=== PATIENT | female | born 1945 | race Two or more races ===

== ENCOUNTER → 2019-10-19 | Outpatient (CLI) | payer MEDICARE, BC ==
[2019-10-19 09:43] LABS: HCT 45.3 % (34.0-46.0); MCH 28.8 pg (25.0-35.0); MCV 93.1 fL (80.0-100.0); Mean Platelet Volume 8.8; Platelet Count 116 k/uL (150-450); RBC 4.86 m/uL (3.80-5.40); RDW 15.6 % (11.5-15.5); WBC 4.5 k/uL (3.8-10.6)
[2019-10-19 10:01] LABS: INR 0.9 (<1.2); Partial Thromboplastin Time 23.5 sec (22.0-30.0); Prothrombin Time 9.7 sec (9.0-12.0)
[2019-10-19 10:15] LABS: Appearance,Urine Cloudy (Clear); Bacteria,Urine Rare /hpf; Bilirubin,Urine Negative (Negative); Blood,Urine Negative (Negative); Color,Urine Yellow; Glucose,Urine (UA) Negative (Negative); Hyaline Casts,Urine 7 /lpf (0-2); Ketones,Urine Negative (Negative); Leukocyte Esterase,Urine Large (Negative); Mucus,Urine Few /hpf; Nitrite,Urine Negative (Negative); PH, Urine 5.5 (5.0-8.0); Protein,Urine Trace (Negative); RBC,Urine 5 /hpf (0-5); Specific Gravity,Urine 1.042 (1.001-1.035); Squamous Epithelial Cell,Urine 8 /hpf (0-4); WBC,Urine 21 /hpf (0-5)
[2019-10-19 10:23] LABS: Albumin 3.9 g/dL (3.5-5.0); Calcium 9.7 mg/dL (8.4-10.2); Potassium 4.6 mmol/L (3.5-5.1); Total Bilirubin 0.5 mg/dL (0.2-1.3); Total Protein 6.4 g/dL (6.3-8.2)
== END | disposition home or self-care (01) ==
LOC: LABPAT 08:22
PROVIDERS: ATTEND Orthopaedic Surgery
DX: Z01.818 Encounter for other preprocedural examination (principal); Z01.812 Encounter for preprocedural laboratory examination; Z79.01 Long term (current) use of anticoagulants
CPT/HCPCS: 36415; 80053; 81001; 85027; 85610; 85730; 87070; 93005

== ENCOUNTER 2019-11-08 05:33 | Day surgery (SDC) | payer MEDICARE, BC ==
[2019-11-03 15:03] VITALS: BMI 44.6
[~2019-11-08 05:33] MED LIST: ACETAMINOPHEN TAB 500 MG TAB PO ONE; GABAPENTIN 300 MG CAP PO ONE; MELOXICAM 7.5 MG TAB PO ONE; TRANEXAMIC ACID 1,000 MG in SODIUM CHLORIDE 0.9% 100 ML IVPB ONE
[2019-11-08] MEDS ORDERED: DEXAMETHASONE SOD PHOSPHATE 10 MG/ML 1 ML VIAL IV ONE (05:41)
[2019-11-08] MEDS ORDERED: ONDANSETRON 4 MG/2 ML VIAL IVP ONE (05:41)
[2019-11-08] MEDS ORDERED: fentaNYL (PF) 50 MCG/ML 2 ML AMP IV PRN (05:41)
[2019-11-08] MEDS ORDERED: SCOPOLAMINE 1.5MG/72HR PATCH TRANSDERM ONE (05:41)
[2019-11-08] MEDS ORDERED: MORPHINE SULFATE 2 MG/ML SYRINGE IV PRN (05:41)
[2019-11-08] MEDS: LACTATED RINGERS 1,000 ML IV SCH (06:30)
[2019-11-08] MEDS ORDERED: MIDAZOLAM 2 MG/2 ML VIAL IV ONE (06:43)
[2019-11-08] MEDS ORDERED: fentaNYL (PF) 50 MCG/ML 2 ML AMP IV ONE (06:43)
[2019-11-08] MEDS ORDERED: TRANEXAMIC ACID 1,000 MG/10 ML VIAL ONE (06:55)
[2019-11-08] MEDS ORDERED: PROPOFOL 10 MG/ML 20 ML VIAL IV ONE (06:55)
[2019-11-08] MEDS ORDERED: fentaNYL (PF) 50 MCG/ML 2 ML AMP ONE (06:55)
[2019-11-08] MEDS ORDERED: MIDAZOLAM 2 MG/2 ML VIAL ONE (06:55)
[2019-11-08] MEDS ORDERED: SODIUM CHLORIDE 0.9% 100 ML BAG ONE (06:55)
[2019-11-08] MEDS ORDERED: HYDROcodone/APAP 5-325MG 1 EACH TAB PO PRN (07:03)
[2019-11-08] MEDS ORDERED: NALOXONE 0.4 MG/ML 1 ML VIAL IV PRN (07:03)
[2019-11-08] MEDS ORDERED: ONDANSETRON 4 MG/2 ML VIAL IVP PRN (07:03)
[2019-11-08] MEDS ORDERED: HYDROmorphone 0.5 MG/0.5 ML SYRINGE IVP PRN ×3 (07:03)
[2019-11-08] MEDS ORDERED: bisacodyL 10 MG SUPP RECTAL PRN (07:03)
[2019-11-08] MEDS ORDERED: MAGNESIUM HYDROXIDE 2,400 MG/10 ML CUP PO PRN (07:03)
[2019-11-08] MEDS ORDERED: NA PHOS,M-B/NA PHOS,DI-BA 133 ML ENEMA RECTAL PRN (07:03)
[2019-11-08] MEDS: ROPIVACAINE 246.25 MG, EPINEPHrine 0.5 MG, KETOROLAC 30 MG, cloNIDine HCL/PF 80 MCG, WA... MISCELLANE ONE ×10 (07:49→08:03)
[2019-11-08] MEDS ORDERED: ceFAZolin 3,000 MG in SODIUM CHLORIDE 0.9% IRRIGATIO 3,000 ML IRRIGATION ONE (07:50)
[2019-11-08] MEDS ORDERED: ROPIVACAINE 0.2%-NS ON-Q PUMP 1,090 MG, EMPTY PAIN BALL 1 EACH MISCELLANE PRN (08:20)
--- NOTE | 2019-11-08 08:22 | P.ANPRN ---
Procedure Note - Anesthesia - Nerve Block Performed Right Adductor Canal Infusion Time Out Performed: Yes (642) Date of Procedure: 11/08/19 Procedure Start Time: 06:43 Procedure Stop Time: 06:49 Location of Patient: PreOp Indication: Acute Post-Operative Pain, Requested by Surgeon Specifically requested for management of pain by DrJj: Armand Harris Sedation Type: Sedate with meaningful contact maintained Preparation: Sterile Prep Position: Supine Catheter Depth at Skin (cm): 10 Catheter: Indwelling Needle Types: Pajunk Needle Gauge: 21 Ultrasound used to visualize needle placement: Yes Ultrasound used to observe medication spread: Yes Injectate: 0.5% Ropivacaine (see comment for volume) (20cc) Blood Aspirated: No Pain Paresthesia on Injection Noted: No Resistance on Injection: Normal Image Stored and Saved: Yes Events: Uneventful and Well Tolerated
--- NOTE | 2019-11-08 08:31 | P.OP ---
Date of Procedure: 11/08/19 Preoperative Diagnosis: Severe osteoarthritis right knee Postoperative Diagnosis: Severe osteoarthritis right knee Procedure(s) Performed: Right total knee arthroplasty Implants: Joyce and Nephew Journey II CR Oxinium cruciate retaining femoral component size 5, right [employer]hew Journey right nonporous tibial baseplate size 3 Joyce [employer] Nephew Journey II, XLPE Deep Dished articular insert, size 13 mm, Size 3-4 right [employer] Journey BCS resurfacing oval patellar component, 32 mm All components were cemented using Palacos R bone cement.. The articulation is Oxinium on polyethylene. Anesthesia: spinal Surgeon: Guillermo Yuen Deposition Operator #1: Mary Ann Valdez Estimated Blood Loss (ml): 30 Pathology: other (Bone and cartilage) Condition: stable Disposition: PACU Indications for Procedure: After failure of conservative treatment we discussed the surgical and nonsurgical treatment options at length. Patient wishes to proceed with a total knee arthroplasty. Complications specific to this procedure were discussed at length, including but not limited to infection, bleeding, stiffness, and nerve injury. Covid-19 was also discussed at length with the patient, and they are aware of the current policies and procedures. The patient was given the option of delaying surgery, but they elect to proceed knowing these risks. Patient is aware of all these complications and informed consent was obtained Operative Findings: The operative findings are consistent with severe osteoarthritis of the right knee Description of Procedure: Patient was seen in the preoperative area consent was reviewed and operative site was marked with a skin marker. An adductor canal pain catheter was placed by anesthesia in the preoperative area. Patient was then brought to the operating room and given preoperative antibiotics intravenously. A spinal anesthetic was administered by the anesthesia department. A tourniquet was placed on the upper thigh and the lower extremity was prepped and draped in usual sterile fashion. A gram of transexamic acid was given. A universal timeout was then performed which confirmed the patient's name, surgical site, ALLERGIES, and consent. The lower extremity was then exsanguinated and tourniquet was inflated to 250 mmHg. A standard and anterior midline approach to the knee was performed. The skin and subcutaneous tissue was dissected down to the patellar tendon. A medial parapatellar arthrotomy was then performed. The knee was then extended, the patellar was everted, and the knee was again flexed. The patellar fat pad was removed in order to enhance exposure. Anterior horns of both menisci were excised, and a release was performed to the posterior medial aspect of the knee. On gross visual inspection, there was complete loss of articular cartilage in the medial and patellofemoral joint spaces. There was also significant cartilage damage in the lateral compartment. There were multiple periarticular osteophytes which were then removed with a Ronguer. The femoral canal was then opened with the 9.5 mm intramedullary drill. The 8 mm intramedullary samantha was then inserted into the femoral canal. The distal femoral cutting guide was then placed and set for 5 of valgus. The distal femoral cutting block was then pinned in place. The intramedullary samantha was then removed, and the distal femur was then cut. The cutting block was then removed and the cut was checked for symmetry. Next, the sizing guide was then placed and set for 3 external rotation based off of the epicondylar axis and Whitesides line. Pins were then placed and the drill holes, and the femur was sized with the sizing stylus. The pins were then removed, and the sizing guide was then removed. The spikes of the femoral block was then placed into the predrilled holes, and malleted into place. Two 45 mm pins were then placed into the fixation holes on the cutting block. An courtney wing was then used to ensure there would be no notching with the anterior cut. The anterior condyles were cut without notching. The anterior cord cut was then performed, followed by the posterior cut, posterior chamfer cut, and the anterior chamfer cut. The collateral ligaments were protected during the entire process. The cutting block was then removed, and the femoral canal was plugged with autologous bone. Attention was then directed to the tibia. The remaining ACL was removed with a Ronguer, and the tibia was then gently subluxed forward with a large bent knee retractor. Any remaining menisci was excised. The posterior lateral corner was cauterized in order to cauterize the lateral geniculate artery. The extra medullary tibial cutting guide was then placed, set for the appropriate rotation, slope, and depth of resection. The proximal tibia cutting guide was then pinned in place. Proximal tibia was then cut and sized. Next trials were then placed with the appropriate-sized insert. The knee was able to fully extend and flex to 130 and was stable throughout all range of motion. The knee was then extended, patella everted. Patella was then measured, and then using an osteotomy guide, the patella was cut at the appropriate level. The patella was then measured and drilled and the patella trial was then placed. The knee was then taken through range of motion with the patella trial and the patella tracked normally. The knee was then extended patella trial was then removed and the patella was everted. Knee was then flexed and lug holes were drilled through the femoral trial and the femoral trial was then removed. The tibial was then exposed, and the tibial broach guide was then pinned in place after it was set for the appropriate rotation to allow for the most coverage without overhang. The tibia was then reamed and broached. The cut surfaces of bone were then irrigated with pulsatile lavage. The posterior structures were injected with the ropivacaine solution. The knee was also irrigated with Irrisept solution. The components were then opened, the cement was mixed, and the components were then cemented in place. The cement was allowed to harden with the knee in full extension. While the cement was hardening, the remaining soft tissues were then injected with a ropivacaine solution, which consisted of 246.25 mg of ropivacaine, 0.5 mg of epinephrine, 30 mg of Toradol, 80 g of clonidine, and 48.45 mL of sterile water, for a total of 100 mL of fluid injected. After the cemented hardened. The tourniquet was released, and hemostasis was obtained. A second gram of transexamic acid was given. The knee was again irrigated. The knee was again taken through range of motion and found to be stable throughout all range of motion of 0-130, and the patella tracked normally. The fascia was then closed with #2 strata fix suture. The subcutaneous tissue was closed with 3-0 Vicryl and 3-0 strata fix. Dermabond glue was used for the skin and placed with the knee in flexion. The patient was placed in a sterile silver dressing. Patient was then transferred to recovery room in stable condition. The physician assistant certified SHAYAN Rojo was required due the complexity surgery and the need for a skilled surgical garment fitter. She assisted in positioning, draping, retraction, and closure of the wound.
[2019-11-08 08:51] VITALS: RESP 16
--- NOTE | 2019-11-08 09:13 | XR ---
EXAMINATION TYPE: XR knee limited RT DATE OF EXAM: 11/08/2019 CLINICAL HISTORY: Right knee pain and arthritis status post total knee replacement. TECHNIQUE: Portable AP and crosstable lateral views of the right knee are obtained immediately posto peratively. COMPARISON: None FINDINGS: Metallic hardware from total right knee arthroplasty is seen and appears satisfactory in a lignment and position. There is evidence of recent surgery with diffuse subcutaneous gas and soft ti ssue swelling noted. IMPRESSION: METALLIC HARDWARE FROM TOTAL RIGHT KNEE ARTHROPLASTY IS SATISFACTORY IN ALIGNMENT.
[2019-11-08] MEDS: SODIUM CHLORIDE 0.9% 1,000 ML IV SCH ×2 (14:32→21:48)
[2019-11-08] MEDS: HYDROcodone/APAP 5-325MG 1 EACH TAB PO PRN ×2 (16:25→23:21)
[2019-11-08] MEDS ORDERED: SENNOSIDES-DOCUSATE SODIUM 1 EACH TAB PO SCH (21:00)
[2019-11-08] MEDS: ASPIRIN 325 MG TAB PO SCH (21:47)
--- NOTE | 2019-11-08 22:25 | P.CONS ---
History of Present Illness - Reason for Consult Consult date: 11/08/19 - History of Present Illness Patient is a 73-year-old female with a PMH of hypertension, hyperlipidemia, and right knee OA who was admitted for elective right knee total arthroplasty which she underwent earlier today. She was seen postoperatively on the surgical unit. Patient reported that her pain was a 3 out of 10 at the time of evaluation. She has been up and walking to the bathroom, and has been passing urine. She has not had flatus or bowel movement as of yet. She denied any additional complaints. She reported compliance with her home medications. She denied chest pain, shortness of fever, chills, nausea, vomiting, diarrhea, or abdominal pain. Review of Systems Pertinent positives and negatives as discussed in HPI, a complete review of systems was performed and all other systems are negative. Past Medical History Past Medical History: Asthma, GERD/Reflux, Hyperlipidemia, Hypertension Additional Past Medical History / Comment(s): leaky valve. asthma as a child History of Any Multi-Drug Resistant Organisms: None Reported Past Surgical History: Section, Cholecystectomy Additional Past Surgical History / Comment(s): C/S x2 Past Anesthesia/Blood Transfusion Reactions: Motion Sickness, Postoperative Nausea & Vomiting (PONV) Past Psychological History: No Psychological Hx Reported Smoking Status: Former smoker Past Alcohol Use History: Rare Additional Past Alcohol Use History / Comment(s): smoker for 3 years quit 1967 Past Drug Use History: None Reported - Past Family History Mother Family Medical History: No Reported History Medications and Allergies Home Medications Medication Instructions Recorded Confirmed Type Aspirin EC [Ecotrin Low Dose] 81 mg PO DAILY 11/03/19 11/03/19 History Cholecalciferol [Vitamin D3 (25 4,000 unit PO DAILY 11/03/19 11/03/19 History Mcg = 1000 Iu)] Rosuvastatin [Crestor] 10 mg PO DAILY 11/03/19 11/03/19 History atenoloL [Atenolol] 25 mg PO BID 11/03/19 11/03/19 History lisinopriL [Zestril] 5 mg PO DAILY 11/03/19 11/03/19 History Allergies Allergy/AdvReac Type Severity Reaction Status Date / Time No Known Allergies Allergy Verified 11/03/19 14:50 Physical Exam Vitals: Vital Signs Temp Pulse Resp BP Pulse Ox 11/08/19 14:02 97.5 F L 61 16 129/76 95 11/08/19 13:50 69 16 124/59 98 11/08/19 13:00 68 16 122/56 98 11/08/19 12:30 64 16 126/59 98 11/08/19 11:30 63 16 125/63 97 11/08/19 11:00 69 16 127/59 97 11/08/19 10:30 63 16 126/62 98 11/08/19 10:00 61 16 125/60 98 11/08/19 09:45 68 16 123/58 97 11/08/19 09:30 69 16 126/60 96 11/08/19 09:15 65 16 128/58 94 L 11/08/19 09:00 72 16 120/57 94 L 11/08/19 08:46 97.6 F 76 16 115/56 94 L 11/08/19 06:50 64 18 134/58 96 11/08/19 05:53 97.3 F L 76 20 171/77 94 L Intake and Output 11/08/19 11/08/19 11/08/19 06:59 14:59 22:59 Intake Total 1051 560 Output Total 30 Balance 1021 560 Intake: IV 1051 Intake, IV Titration 560 Amount Sodium Chloride 0.9% 1, 560 000 ml @ 70 mls/hr IV . [id number] [facility] Rx#:[id number] Output: Estimated Blood Loss 30 Other: Voiding Method Toilet Weight 118.6 kg 118.6 kg General: non toxic, no distress, appears at stated age, morbidly obese Derm: no unusual rashes/lesions no unusual ecchymoses, warm, dry Head: atraumatic, normocephalic, symmetric Eyes: EOMI, no lid lag, anicteric sclera, pupils equal round reactive to light ENT: Nose and ears atraumatic, no thrush, no pharyngeal erythema Neck: No thyromegaly, no cervical lymphadenopathy, trachea midline, supple Mouth: no lip lesion, mucus membranes moist Cardiovascular: S1S2 reg, no murmur, positive posterior tibial pulse bilateral, no edema, capillary refill less than 2 seconds Lungs: CTA bilateral, no rhonchi, no rales , no accessory muscle use Abdominal: soft, nontender to palpation, no guarding, no appreciable organomegaly, normal bowel sounds Ext: Right knee Maciej bandage in place, no gross muscle atrophy, muscle strength 5 out of 5 in all extremities grossly except right lower extremity pain, no contractures, Neuro: CN II-XI grossly intact, light touch intact all 4 extremities, finger to nose within normal limits, Psych: Alert, oriented, appropriate affect Assessment and Plan Plan: Hypertension -Continue home lisinopril and atenolol Hyperlipidemia -Continue with home Crestor Status post right knee total arthroplasty -Management including pain control as per the surgery service We appreciate this opportunity to be involved in this patient's care. We will follow the patient with you. For any further questions, please not hesitate to contact the [facility] inpatient team.
[2019-11-09] MEDS: LACTATED RINGERS 1,000 ML IV SCH (00:41)
[2019-11-09] MEDS: HYDROcodone/APAP 5-325MG 1 EACH TAB PO PRN ×2 (05:23→11:00)
--- NOTE | 2019-11-09 06:35 | P.PN ---
Progress Note - Text Progress Note Date: 11/09/19 (549) Anesthesiology Postop day 1 status post total knee arthroplasty with adductor canal catheter. Patient doing well. VAS 1 out of 10. Gross strength intact in lower extremity. Afebrile. Denies alterations in sensorium. Catheter site intact. Heart regular rate Lungs nonlabored Abdomen nondistended Assessment: Postop day 1 status post total knee arthroplasty with adductor canal catheter Plan: All questions answered. Maintain catheter 2 more days with patient removal at home. Instructions were given at discharge.
[2019-11-09 07:41] VITALS: TEMP 97.5
[2019-11-09] MEDS: ASPIRIN 325 MG TAB PO SCH (08:08)
[2019-11-09 08:12] LABS: Basophils % (A) 0 %; Eosinophils % (A) 0 %; HCT 38.8 % (34.0-46.0); HGB 12.1 gm/dL (11.4-16.0); Lymphocytes # (A) 1.1 k/uL (1.0-4.8); Lymphocytes % (A) 11 %; MCH 29.2 pg (25.0-35.0); MCHC 31.2 g/dL (31.0-37.0); MCV 93.6 fL (80.0-100.0); Mean Platelet Volume 8.8; Monocytes # (A) 0.5 k/uL (0-1.0); Monocytes % (A) 6 %; Neutrophils # (A) 7.5 k/uL (1.3-7.7); Neutrophils % (A) 82 %; Platelet Count 113 k/uL (150-450); RBC 4.15 m/uL (3.80-5.40); RDW 15.3 % (11.5-15.5); WBC 9.2 k/uL (3.8-10.6)
--- NOTE | 2019-11-09 08:20 | P.DS ---
Providers Expected date of discharge: 11/09/19 Attending physician: Guillermo Yuen Consults: 11/08/19 07:03 Consult Physician Routine Consulting Provider: Cheryle Ventura Consult Reason/Comments: medical management Do you want consulting provider notified?: Yes Primary care physician: Jan Brooks [facility] Course: This is a 74-year-old female who was last seen with complaint of continued right knee pain. The patient has a known history of degenerative arthritis of the right knee and presents to discuss surgical options with Dr. Yuen. After discussion and consideration the patient elects to proceed with total right knee arthroplasty. The patient is seen preoperatively by Dr. Brooks and cleared for surgery. The patient is admitted to [facility] for total right knee arthroplasty. The procedures performed without complication or sequelae. Patient is doing well postoperatively. Vital signs are stable at discharge. Labs are stable at discharge. The patient is seen and examined bedside this morning. She states the pain in the right knee is well-controlled. She has been ambulating with a walker with minimal assistance. She tolerated her breakfast well. She denies chest pain, shortness breath, nausea, vomiting, fevers, chills. Overall she feels well and has no complaints. On examination, the patient is sitting up in bed in no apparent distress. She is alert and oriented 3. On inspection of the right knee, there is a clean, dry, intact dressing in place. Right lower extremity is warm and well-perfused with brisk capillary refill distally. Dorsalis pedis pulse +2. Patient has good strength and range of motion of the right ankle. Motor and sensory function are intact of the right lower extremity. Calf is soft and nontender to palpation. The patient is discharged to home on postop day #1 pending medical clearance. Please see orders and refer to the med rec for accurate list of medications. Patient Condition at Discharge: Fair Plan - Discharge Summary Discharge Rx Participant: No New Discharge Prescriptions: New Aspirin 325 mg PO BID 30 Days #60 tab Hydrocodone/Acetaminophen [[place] 5-325] 1 - 2 tab PO Q6H PRN #40 tab PRN Reason: Pain Sennosides-Docusate Sodium [Senokot-S] 2 tab PO HS PRN #30 tablet PRN Reason: Constipation No Action Cholecalciferol [Vitamin D3 (25 Mcg = 1000 Iu)] 4,000 unit PO DAILY Aspirin EC [Ecotrin Low Dose] 81 mg PO DAILY atenoloL [Atenolol] 25 mg PO BID Rosuvastatin [Crestor] 10 mg PO DAILY lisinopriL [Zestril] 5 mg PO DAILY Discharge Medication List Aspirin EC [Ecotrin Low Dose] 81 mg PO DAILY 11/03/19 [History] Cholecalciferol [Vitamin D3 (25 Mcg = 1000 Iu)] 4,000 unit PO DAILY 11/03/19 [History] Rosuvastatin [Crestor] 10 mg PO DAILY 11/03/19 [History] atenoloL [Atenolol] 25 mg PO BID 11/03/19 [History] lisinopriL [Zestril] 5 mg PO DAILY 11/03/19 [History] Aspirin 325 mg PO BID 30 Days #60 tab 11/09/19 [Rx] Hydrocodone/Acetaminophen [[place] 5-325] 1 - 2 tab PO Q6H PRN #40 tab 11/09/19 [Rx] Sennosides-Docusate Sodium [Senokot-S] 2 tab PO HS PRN #30 tablet 11/09/19 [Rx] Activity/Diet/Wound Care/Special Instructions: Weight bear as tolerated on operative leg. Use walker for ambulation. Keep Optifoam dressing in place for 7-10 days. May shower over dressing. Take pain medication as prescribed. Aspirin 325 mg for blood clot prevention. Follow-up at [facility] in 2 weeks. Call with any questions or concerns, Discharge Disposition: HOME WITH HOME HEALTH SERVICES
[2019-11-09] MEDS ORDERED: ATORVASTATIN 20 MG TAB PO SCH (09:00)
[2019-11-09] MEDS ORDERED: lisinopriL 5 MG TAB PO SCH (09:00)
[2019-11-09] MEDS ORDERED: atenoloL 25 MG TAB PO SCH (09:00)
[2019-11-09] MEDS ORDERED: MELOXICAM 7.5 MG TAB PO SCH (09:00)
[2019-11-09] MEDS: SODIUM CHLORIDE 0.9% 1,000 ML IV SCH (09:44)
[2019-11-09 10:05] VITALS: BP 122/56; PULSE 57
--- NOTE | 2019-11-09 20:12 | P.PN ---
Subjective Progress Note Date: 11/09/19 Principal diagnosis: leg pain Patient is a 18-year-old female history of hypertension, dyslipidemia, and GERD who presented for elective right total knee arthroplasty. She underwent surgical procedure without any immediate postoperative complications. Pain is well controlled. She's been up and ambulating. Patient seen and examined at bedside. She denies any chest pain, shortness breath, nausea, or vomiting. Pain is well controlled. General: non toxic, no distress, appears at stated age Cardiovascular: S1S2 reg, no murmur, positive posterior tibial pulse bilateral, Lungs: CTA bilateral, no rhonchi, no rales , no accessory muscle use Abdominal: soft, nontender to palpation, no guarding, no appreciable organomegaly Ext: no gross muscle atrophy, no edema, no contractures Neuro: CN II-XI grossly intact, no focal neuro deficits Psych: Alert, oriented, appropriate affect GERD -While is receiving twice daily aspirin she will take Pepcid every day Hypertension -Continue with lisinopril, Tylenol Dyslipidemia -Continue with Crestor Arthritis status post right total knee arthroplasty -Resume aspirin 81 mg once daily after she has completed her twice-daily regimen -Monitor for signs and symptoms of bleeding as patient has chronic thrombocytopenia. Patient is aware and will call PCP if any abnormal signs of bruising or bleeding appear Chronic thrombocytopenia, at baseline -Monitor for signs and symptoms of bleeding while on twice-daily full dose aspirin. Thank you for allowing us to participate in the care of this pleasant patient. Do not hesitate to contact us with questions. Someone can be reached from the [facility] hospitalist group all hours of the day at [phone] or via perfect serve. All instructions noted above had been added to discharge plan. Objective - Vital Signs Vital signs: Vital Signs Temp 97.5 F L 11/09/19 07:00 Pulse 57 L 11/09/19 10:05 Resp 16 11/09/19 08:20 BP 122/56 11/09/19 10:05 Pulse Ox 95 11/09/19 07:00 Intake & Output 11/08/19 11/09/19 11/09/19 18:59 06:59 18:59 Intake Total 1051 560 200 Output Total 30 Balance 1021 560 200 Weight 118.6 kg Intake: IV 1051 Intake, IV Titration 560 Amount Sodium Chloride 0.9% 1, 560 000 ml @ 70 mls/hr IV . [id number] [facility] Rx#:[id number] Oral 200 Output: Estimated Blood Loss 30 Other: Voiding Method Toilet Toilet # Voids 1 - Labs CBC & Chem 7: 11/09/19 07:45 Labs: Abnormal Lab Results - Last 24 Hours (Table) 11/09/19 Range/Units 07:45 Plt Count 113 L (150-450) k/uL
== END 2019-11-09 11:43 | disposition home health service (06) ==
LOC: OR 05:33 → 4SSUR 08:46 → OR 11-09 11:43
PROVIDERS: ATTEND Orthopaedic Surgery
DX: M17.11 Unilateral primary osteoarthritis, right knee (principal); M25.761 Osteophyte, right knee; D69.6 Thrombocytopenia, unspecified; I10 Essential (primary) hypertension; E78.5 Hyperlipidemia, unspecified; I38 Endocarditis, valve unspecified; K21.9 Gastro-esophageal reflux disease without esophagitis; Z87.891 Personal history of nicotine dependence; Z87.09 Personal history of other diseases of the respiratory system; Z90.49 Acquired absence of other specified parts of digestive tract; Z98.891 History of uterine scar from previous surgery; Z79.82 Long term (current) use of aspirin; Z79.899 Other long term (current) drug therapy
CPT/HCPCS: 97116; 97110; 97161; 64448; 76942; 85025; 88300; 73560; 27447; C1713; C1776; J2250; J0171; J1100; J0690 ×2; J2405; J3010; J1885; J2795 ×2; J0735

== ENCOUNTER → 2021-06-19 | Outpatient (CLI) | payer MEDICARE, BC ==
[2021-06-19 10:53] LABS: Basophils % (A) 0 %; Eosinophils % (A) 1 %; HCT 45.9 % (34.0-46.0); HGB 14.3 gm/dL (11.4-16.0); Lymphocytes % (A) 8 %; MCH 29.8 pg (25.0-35.0); MCHC 31.1 g/dL (31.0-37.0); MCV 95.8 fL (80.0-100.0); Mean Platelet Volume 9.4; Monocytes % (A) 5 %; Neutrophils # (A) 7.6 k/uL (1.3-7.7); Neutrophils % (A) 85 %; Platelet Count 126 k/uL (150-450); RBC 4.79 m/uL (3.80-5.40); RDW 14.3 % (11.5-15.5); WBC 8.9 k/uL (3.8-10.6)
[2021-06-19 10:54] LABS: Eosinophils # (A) 0.1 k/uL (0-0.7); Lymphocytes # (A) 0.7 k/uL (1.0-4.8); Monocytes # (A) 0.4 k/uL (0-1.0)
[2021-06-19 12:41] LABS: RBC Morphology Normal
== END | disposition home or self-care (01) ==
LOC: LABWHC1 09:29
PROVIDERS: ATTEND Internal Medicine
DX: D69.6 Thrombocytopenia, unspecified (principal)
CPT/HCPCS: 36415; 85025

== ENCOUNTER → 2021-07-04 | Outpatient (CLI) | payer MEDICARE, BC ==
[2021-07-04 15:06] LABS: Basophils % (A) 1 %; Eosinophils # (A) 0.1 k/uL (0-0.7); Eosinophils % (A) 1 %; HCT 46.2 % (34.0-46.0); HGB 14.6 gm/dL (11.4-16.0); Lymphocytes # (A) 0.7 k/uL (1.0-4.8); Lymphocytes % (A) 14 %; MCH 30.1 pg (25.0-35.0); MCHC 31.7 g/dL (31.0-37.0); Mean Platelet Volume 9.7; Monocytes # (A) 0.3 k/uL (0-1.0); Monocytes % (A) 6 %; Neutrophils # (A) 3.9 k/uL (1.3-7.7); Neutrophils % (A) 76 %; Platelet Count 128 k/uL (150-450); RBC 4.86 m/uL (3.80-5.40); RDW 14.5 % (11.5-15.5); WBC 5.1 k/uL (3.8-10.6)
== END | disposition home or self-care (01) ==
LOC: LABWHC1 13:41
PROVIDERS: ATTEND Internal Medicine
DX: D69.6 Thrombocytopenia, unspecified (principal)
CPT/HCPCS: 36415; 85025

== ENCOUNTER → 2021-08-17 | Outpatient (CLI) | payer MEDICARE, BC ==
--- NOTE | 2021-08-18 06:37 | BD ---
EXAMINATION TYPE: Axial Bone Density DATE OF EXAM: 08/17/2021 COMPARISON: NEW TO [facility].... CLINICAL HISTORY: 76 years year old Female. ICD-10 CODE: M89.9 Disorder of bone Height: 63.5 Weight: 256 FRAX RISK QUESTIONS: NOTHING TO NOTE HERE RISK FACTORS HISTORY OF: Postmenopausal woman: 53 YRS Hyperparathyroidism: NO Adrenal Insufficiency: NO MEDICATIONS: Additional Medications: BP MEDS, REFLUX MEDS, CHOLESTEROL MEDS, VIT D Additional History: TKR, RT SIDE, REFLUX, HYPERTENSION, CHOLESTEROL EXAM MEASUREMENTS: Bone mineral densitometry was performed using the [employer] System. Bone mineral density as measured about the Lumbar spine is: ----- L1-L4(G/cm2): 1.364 T Score Values are as follows: ----- L1: 2.0 ----- L2: 1.0 ----- L3: 1.5 ----- L4: 1.6 ----- L1-L4: 1.5 Bone mineral density NEW TO [facility] Bone mineral density about the R hip (g/cm2): 1.025 Bone mineral density about the L hip (g/cm2): 1.035 T Score values are as follows: -----R Neck: 0.0 -----L Neck: -0.1 -----R Total: 0.1 -----L Total: 0.2 Bone mineral density NEW TO [facility] FRAX%s: The graph provided illustrates a 6.6% chance for a major osteoporotic fx and a 0.6% chance fo r the hips probability for fx in 10 years time. IMPRESSION: Normal (Values between +1 and -1 indicate normal bone mass). Consider repeating this study in 5 year s or sooner if there is some new clinical indication. NOTE: T-SCORE=SD OF THE YOUNG ADULT MEAN.
== END | disposition home or self-care (01) ==
LOC: RADBDWWP 08:27
PROVIDERS: ATTEND Internal Medicine
DX: M89.9 Disorder of bone, unspecified (principal); Z78.0 Asymptomatic menopausal state
CPT/HCPCS: 77080

== ENCOUNTER → 2022-09-13 | Outpatient (CLI) | payer MEDICARE, BC ==
[2022-09-13 17:05] LABS: ALT 19 U/L (8-44); AST 16 U/L (13-35); Chol/HDL Ratio 4.67 Ratio; Creatine Kinase 30 U/L (26-186); LDL Cholesterol,Calculated 181.4 mg/dL (0.0-131.0)
== END | disposition home or self-care (01) ==
LOC: LABWHC1 08:33
PROVIDERS: ATTEND Internal Medicine Interventional Cardiology
DX: I10 Essential (primary) hypertension (principal); E78.5 Hyperlipidemia, unspecified
CPT/HCPCS: 36415; 80061; 82550; 84450; 84460

== ENCOUNTER → 2022-11-26 | Outpatient (CLI) | payer MEDICARE, BC ==
[2022-11-26 11:28] LABS: ALT 22 U/L (8-44); AST 14 U/L (13-35); Chol/HDL Ratio 2.44 Ratio; Creatine Kinase 30 U/L (26-186); LDL Cholesterol,Calculated 63.6 mg/dL (0.0-131.0)
== END | disposition home or self-care (01) ==
LOC: LABWHC1 07:23
PROVIDERS: ATTEND Internal Medicine Interventional Cardiology
DX: I10 Essential (primary) hypertension (principal); E78.5 Hyperlipidemia, unspecified
CPT/HCPCS: 36415; 80061; 82550; 84450; 84460

== ENCOUNTER → 2024-06-09 | Outpatient (CLI) | payer MEDICARE, BC ==
[2024-06-09 12:23] LABS: Partial Thromboplastin Time 23.3 sec (22.0-30.0); Prothrombin Time 10.7 sec (10.0-12.5)
[2024-06-09 15:40] LABS: HCT 45.6 % (37.2-46.3); HGB 14.3 g/dL (12.0-15.0); MCH 29.6 pg (27.0-32.0); MCHC 31.4 g/dL (32.0-37.0); MCV 94.4 FL (80.0-97.0); Mean Platelet Volume 11.9 FL (9.5-12.2); NRBC Per 100 WBC 0 X 10*3/uL (0.00-0.01); Platelet Count 126 X 10*3/uL (140-440); RBC 4.83 X 10*6/uL (4.10-5.20); RDW 14.3 % (11.5-14.5); WBC 7.13 X 10*3/uL (4.50-10.00)
[2024-06-09 15:47] LABS: ALT 16 U/L (8-44); AST 14 U/L (13-35); Alkaline Phosphatase 84 U/L (41-126); BUN/Creat Ratio 20.82 Ratio (12.00-20.00); Blood Urea Nitrogen 22.9 mg/dL (9.0-27.0); Calcium 9.8 mg/dL (8.7-10.3); Chloride 107 mmol/L (96-109); Globulin 2.1 g/dL (1.6-3.3); Glucose 139 mg/dL (70-110); Potassium 4.3 mmol/L (3.5-5.5); Sodium 142 mmol/L (135-145); Total Bilirubin 0.2 mg/dL (0.3-1.2); Total Protein 6.1 g/dL (6.2-8.2)
== END | disposition home or self-care (01) ==
LOC: LABPAT 11:33
PROVIDERS: ATTEND Family Medicine
DX: Z01.818 Encounter for other preprocedural examination (principal); Z22.322 Carrier or suspected carrier of Methicillin resistant Staphylococcus aureus; M17.12 Unilateral primary osteoarthritis, left knee
CPT/HCPCS: 80053; 85027; 85610; 85730; 87070; 93005

== ENCOUNTER 2024-06-28 05:34 | Day surgery (SDC) | payer MEDICARE, BC ==
[~2024-06-28 05:34] MED LIST changes: -ACETAMINOPHEN TAB 500 MG TAB PO ONE; -GABAPENTIN 300 MG CAP PO ONE; -MELOXICAM 7.5 MG TAB PO ONE; +TRANEXAMIC 1,000 MG/100ML-NACL 1,000 MG in SALINE 1 100ML.BAG IVPB PRN; -TRANEXAMIC ACID 1,000 MG in SODIUM CHLORIDE 0.9% 100 ML IVPB ONE
[2024-06-28] MEDS ORDERED: LIDOCAINE 1% (10MG/ML) FOR IV START INTRADERMA PRN (05:40)
[2024-06-28] MEDS ORDERED: HYDROmorphone 0.5 MG/0.5 ML SYRINGE IVP PRN ×4 (05:40→08:47)
[2024-06-28] MEDS: GABAPENTIN 300 MG CAP PO PRN (05:59)
[2024-06-28] MEDS: MELOXICAM 7.5 MG TAB PO PRN (05:59)
[2024-06-28] MEDS: ACETAMINOPHEN TAB 500 MG TAB PO PRN (05:59)
[2024-06-28] MEDS: ONDANSETRON 4 MG/2 ML VIAL IVP ONE (06:24)
[2024-06-28] MEDS: LACTATED RINGERS 1,000 ML IV SCH ×2 (06:24→10:24)
[2024-06-28] MEDS: DEXAMETHASONE SOD PHOSPHATE 4 MG/ML 1 ML VIAL IV ONE (06:25)
[2024-06-28] MEDS: IV FLUID CONTINUATION 1,000 ML IV ONE (06:27)
[2024-06-28] MEDS: MIDAZOLAM 2 MG/2 ML VIAL IV ONE (06:43)
[2024-06-28] MEDS ORDERED: SODIUM CHLORIDE 0.9% (PF) 10 ML VIAL ONE (06:57)
[2024-06-28] MEDS ORDERED: MIDAZOLAM 2 MG/2 ML VIAL ONE (06:57)
[2024-06-28] MEDS ORDERED: ePHEDrine 50 MG/ML 1 ML VIAL ONE (06:57)
[2024-06-28] MEDS ORDERED: fentaNYL (PF) 50 MCG/ML 2 ML AMP ONE (06:57)
[2024-06-28] MEDS ORDERED: TRANEXAMIC 1,000 MG/100ML-NACL PREMIX BAG ONE (06:57)
[2024-06-28] MEDS ORDERED: ROPIVACAINE 5 MG/ML 30 ML VIAL ONE (06:57)
[2024-06-28 07:00] LABS: Immature Platelet Fraction 4.2 % (1.1-6.1); Mean Platelet Volume 11.4 fL (9.5-12.2); Platelet Count 124 10*3/uL (140-440)
[2024-06-28] MEDS: ceFAZolin 1,000 MG in SODIUM CHLORIDE 0.9% 1,000 ML IRRIGATION ONE (07:05)
[2024-06-28] MEDS: ceFAZolin 2 GM in DEXTROSE 5% IN WATER 50 ML IVPB PRN (07:05)
--- NOTE | 2024-06-28 08:15 | P.OP ---
Date of Procedure: 06/28/24 Preoperative Diagnosis: Severe osteoarthritis left knee Postoperative Diagnosis: Severe osteoarthritis left knee Procedure(s) Performed: Left total knee arthroplasty Implants: [employer] Journey II CR Oxinium cruciate retaining femoral component size 5, left [employer] Journey nonporous tibial baseplate size 3, left [employer] Journey II, XLPE Deep Dished articular insert, size 9 mm, Size 3- 4, left [employer] Triny II resurfacing patellar component, oval, 29 mm All components were cemented using Palacos R bone cement The articulation is Oxinium on polyethylene Anesthesia: spinal Surgeon: Guillermo Yuen Mortgage Servicing Specialist #1: Mary Ann Valdez Estimated Blood Loss (ml): 30 Pathology: none sent Condition: stable Disposition: PACU Indications for Procedure: The patient's knee is end-stage, and conservative management has failed. The operation of knee replacement has been discussed at length in the office, as well as potential risks and complications. These are inclusive of, but not limited to: Infection, bleeding, scarring, discomfort, stiffness, blood vessel and nerve damage, need for further surgery, failure to relieve symptoms, persistence, recurrence, or worsening of problems, loosening, dislocation, wear, blood clot, pulmonary embolism, , gait dysfunction, stiffness, and other risks as discussed in the office. Patient elects to proceed and the consent form has been signed. Operative Findings: The operative findings are consistent with severe osteoarthritis of the left knee Description of Procedure: The patient was seen in the preoperative area, the consent was reviewed and the operative site was marked with a skin marker. The patient verified the procedure and the operative site. An adductor canal pain catheter and an iPACK block were placed by anesthesia in the preoperative area. The patient was then brought to the operating room and positioned on the operating room table in the supine position. Preoperative antibiotics and a gram of tranexamic acid were given intravenously. A spinal anesthetic was administered by the anesthesia department. Care was taken to make sure that all pressure points were adequately padded. A tourniquet was placed on the upper thigh and the lower extremity was prepped with ChloraPrep and draped in usual sterile fashion. A universal time-out was then performed which confirmed the patient's name, surgical site, ALLERGIES, and consent. The lower extremity was then exsanguinated and tourniquet was inflated to 250 mmHg. A standard anterior midline approach to the knee was performed. The skin and subcutaneous tissue were sharply dissected down to the patellar tendon. A medial parapatellar arthrotomy was then performed. The knee was then extended, the patellar was everted, and the knee was flexed. The infra-patellar fat pad was removed in order to enhance exposure. The anterior horns of both menisci were excised, and a release was performed to the posterior medial aspect of the knee. On gross visual inspection, there was complete loss of articular cartilage in the medial and patellofemoral joint spaces. There was also significant cartilage damage in the lateral compartment. There were multiple periarticular osteophytes globally about the knee which were then removed with a Ronguer. The femoral canal was then opened with the 9.5 mm intramedullary drill. The 8 mm intramedullary samantha was then inserted into the femoral canal with the distal femoral cutting guide set for 5 of valgus. The distal femoral cutting block was then pinned in place. The intramedullary samantha was then removed, and the distal femur was then cut. The cutting block was then removed and the cut was checked for symmetry. The resected bone was then measured to confirm the appropriate distal femoral resection. Next, the sizing guide was then placed and set for 3 external rotation based off of the epicondylar axis and [place]'s line. Pins were then placed and the drill holes, and the femur was sized with the sizing stylus. The pins were then removed, and the sizing guide was then removed. The spikes of the appropriate size femoral block was then placed into the predrilled holes, and malleted into place. Two 45 mm pins were then placed into the fixation holes on the cutting block. An courtney wing was then used to ensure there would be no notching with the anterior cut. The anterior condyles were cut without notching. The anterior chord cut was then performed, followed by the posterior cut, posterior chamfer cut, and the anterior chamfer cut. The collateral ligaments were protected during the entire process. The cutting block was then removed. Any remaining bone and osteophytes were removed from the femur with a Ronguer. Attention was then directed to the tibia. The remaining ACL was removed with a Ronguer, and the tibia was then gently subluxed forward with a large bent knee retractor. Any remaining menisci were excised. The posterior lateral corner was cauterized in order to coagulate the lateral geniculate artery. The extra medullary tibial cutting guide was then placed, set for the appropriate rotation, slope, and depth of resection. The proximal tibia cutting guide was then pinned in place. Proximal tibia was then cut and sized. A curved osteotome was then used to remove any posterior osteophytes from the distal femur. The femoral trial was placed. A narrow saw blade was then used to remove the anterior intracondylar femoral bone. The CR notch trial was then placed. The tibial trial was placed with the appropriate-sized insert. The knee was able to fully extend and flex to 130 and was stable throughout all range of motion. The knee was then extended and the patella was everted. Patella was then measured, and then using an osteotomy guide, the patella was cut at the appropriate level. The patellar component was sized. The patellar drill guide was placed and the patella was drilled. The patella trial was then placed. The knee was then taken through range of motion with the patella trial and the patella tracked normally using the no thumbs technique. The patella trial was then removed. The knee was then flexed and lug holes were drilled through the femoral trial and the femoral trial was then removed. The tibial was then re- exposed, and the tibial broach guide was then pinned in place after it was set for the appropriate rotation to allow for the most coverage without overhang. The tibia was then reamed and broached. The femoral canal was plugged with autologous bone. The cut surfaces of bone were then irrigated with pulsatile lavage. The knee was also irrigated with Irrisept solution. The components were then opened, the cement was mixed. Cement was placed on the backside of the femoral, tibial, and patellar components. Cement was then applied to the tibial surface and pressurized into the surface using finger pressurization technique. The tibial component was then applied and excess cement was removed after it was impacted securely noted to be flush with the cut surface. In similar fashion, the cement was applied to the cut femoral surface, pressuri zed and using finger pressurization the component was impacted in place. Excess cement was removed. The polyethylene spacer was then implanted and locked into position. Patellar component was then applied in a similar technique and the patellar clamp was used to hold patella in place while the cement hardened. The knee was held in full extension while the cement hardened. Once the cement had fully hardened, the knee was reinspected. Any other cement extrusion was removed the final range of motion testing showed range of motion from 0-130 with excellent stability, both medial and laterally and appropriate alignment of the leg. Patella tracked normally. After the cemented hardened, the tourniquet was released and hemostasis was obtained. A second gram of transexamic acid was given intravenously. The knee was again irrigated. The knee was again taken through range of motion and found to be stable throughout all range of motion of 0-130, and the patella tracked normally. The fascia was then closed with 0 Vicryl followed by #2 strata fix suture. The subcutaneous tissue was closed with 3-0 Vicryl and 3-0 monocryl. Exofin glue was used for the skin and placed with the knee in flexion. After the glue had dried, and Optafoam silver impregnated dressing was applied. A lightly compressive dressing was applied using web roll and Maciej wrap. Patient was then transferred to the stretcher and taken to recovery room in stable condition. Sponge and needle counts were correct. The assistant casino shift manager SHAYAN Rojo was required due the complexity surgery and the need for a skilled medical or surgical instrument maker. She assisted in positioning, draping, retraction, and closure of the wound.
[2024-06-28] MEDS ORDERED: MAGNESIUM HYDROXIDE 2,400 MG/30 ML CUP PO PRN (08:47)
[2024-06-28] MEDS ORDERED: bisacodyL 10 MG SUPP RECTAL PRN (08:47)
[2024-06-28] MEDS ORDERED: NA PHOS,M-B/NA PHOS,DI-BA 133 ML ENEMA RECTAL PRN (08:47)
[2024-06-28] MEDS ORDERED: ONDANSETRON 4 MG/2 ML VIAL IVP PRN (08:47)
[2024-06-28] MEDS ORDERED: NALOXONE 0.4 MG/ML 1 ML VIAL IV PRN (08:47)
--- NOTE | 2024-06-28 08:48 | P.ANPRN ---
Procedure Note - Anesthesia - Nerve Block Performed Left Adductor Canal Infusion Time Out Performed: Yes (0642) Date of Procedure: 06/28/24 Location of Patient: PreOp Indication: Acute Post-Operative Pain, Dx/Pain Location (left knee), Requested by Surgeon Specifically requested for management of pain by DrJj: Guillermo Yuen Sedation Type: Sedate with meaningful contact maintained Preparation: Sterile Prep, Sterile Dressing Position: Supine Catheter: Indwelling Needle Types: Pajunk Needle Gauge: 18 Ultrasound used to visualize needle placement: Yes Ultrasound used to observe medication spread: Yes Injectate: 0.5% Ropivacaine (see comment for volume) (20 cc + 10 cc of saline) Blood Aspirated: No Pain Paresthesia on Injection Noted: No Resistance on Injection: Normal Image Stored and Saved: Yes Events: Uneventful and Well Tolerated Left iPack Single Time Out Performed: Yes Date of Procedure: 06/28/24 Location of Patient: PreOp Indication: Acute Post-Operative Pain, Dx/Pain Location (left knee), Requested by Surgeon Specifically requested for management of pain by DrJj: Guillermo Yuen Sedation Type: Sedate with meaningful contact maintained Position: Right Lateral Catheter: None Needle Types: Pajunk Needle Gauge: 21 Ultrasound used to visualize needle placement: No Ultrasound used to observe medication spread: No Injectate: 0.5% Ropivacaine (see comment for volume) (20 cc + 10 cc of saline) Blood Aspirated: No Pain Paresthesia on Injection Noted: No Resistance on Injection: Normal Image Stored and Saved: Yes Events: Uneventful and Well Tolerated
[2024-06-28] MEDS: ROPIVACAINE 1,100 MG, SODIUM CHLORIDE 0.9% 500 ML 330 ML, EMPTY PAIN BALL 1 EACH MISCELLANE PRN (09:10)
--- NOTE | 2024-06-28 09:21 | XR ---
EXAMINATION TYPE: XR knee limited LT DATE OF EXAM: 06/28/2024 9:07 AM COMPARISON: None CLINICAL INDICATION: Female, 79 years old with history of Evaluation for Postop abnormality and align ment; PHH, pain TECHNIQUE: 2 views. FINDINGS: Images show placement of left total knee arthroplasty. Both distal femoral and proximal tib ial components of the prosthesis appear well seated without periprosthetic fracture. Alignment appear s grossly anatomic. Anterior soft tissue swelling with soft tissue air as well as intra-articular air related to recent operation. IMPRESSION: Uncomplicated postoperative appearance left total knee arthroplasty. [facility], Workstation: [facility], 06/28/2024 9:19 AM
[2024-06-28] MEDS: SODIUM CHLORIDE 0.9% 1,000 ML IV SCH (12:13)
--- NOTE | 2024-06-28 15:17 | P.CONS ---
History of Present Illness - Reason for Consult Consult date: 06/28/24 - History of Present Illness Patient is a 79-year-old female with past medical history of HTN, HLD, GERD, s/p right knee total arthroplasty, severe left knee osteoarthritis, who presented for elective left total knee arthroplasty that was performed on 06/28/2024, EBL 30 cc, no immediate postop Complications reported. [facility] physicians consulted for medical management. Review of patient's vitals, heart rate in 60s, normotensive but's couple soft blood pressure readings at 106/62, satting 97% on 2 L. Preoperative lab work showed normal hemoglobin white blood cell count and decreased platelet at 126, this morning platelet 124, previously normal creatinine and GFR with CKD stage II No active complaints Pertinent positives and negatives as discussed in HPI, a complete review of systems was performed and all other systems are negative. Patient seen and examined at bedside. Vital signs reviewed General: nontoxic, no distress, appears at stated age Derm: warm, dry Head: atraumatic, normocephalic, symmetric Eyes: EOMI, no lid lag, anicteric sclera, pupils equal round reactive to light ENT: Nose and ears atraumatic Neck: No thyromegaly, supple Mouth: no lip lesion, mucus membranes moist Cardiovascular: S1S2 reg, no murmur, no edema Lungs: clear to auscultation bilateral, no rhonchi, no rales, no wheeze, no accessory muscle use Abdominal: soft, nontender to palpation, no guarding, no appreciable organomegaly Ext: no gross muscle atrophy, muscle strength muscle strength 5 out of 5 in all 4 extremities, no contractures, postop dressing clean and dry Neuro: CN II-XII grossly intact Psych: Alert, oriented, appropriate affect Assessment/Plan: Hypertension: Continue home atenolol 25 mg, lisinopril 10 mg daily with holding parameters Hyperlipidemia: Continue statins, at home on 10 mg of rosuvastatin, will continue with atorvastatin as inpatient Left knee arthritis arthritis status post left knee total arthroplasty 06/28/2024 - Your postop management, pain management, VTE prophylaxis - PT OT We appreciate this opportunity to be involved in this patient's care. We will follow the patient with you. For any further questions, please not hesitate to contact the [facility] inpatient team. Past Medical History Past Medical History: Coronary Artery Disease (CAD), GERD/Reflux, Hyperlipidemia, Hypertension History of Any Multi-Drug Resistant Organisms: None Reported Past Surgical History: Section, Cholecystectomy, Joint Replacement Additional Past Surgical History / Comment(s): CS x 2, Rt. TKA, bilat.cataracts removed, TLK Past Anesthesia/Blood Transfusion Reactions: No Reported Reaction Past Psychological History: No Psychological Hx Reported Smoking Status: Former smoker Past Alcohol Use History: Occasional Additional Past Alcohol Use History / Comment(s): smoked 2 yrs in teens Past Drug Use History: None Reported - Past Family History Brother(s) Additional Family Medical History / Comment(s): pacemaker Mother Family Medical History: Hypertension Additional Family Medical History / Comment(s): lived to age 89 Medications and Allergies Home Medications Medication Instructions Recorded Confirmed Type Cholecalciferol [Vitamin D3 (25 4,000 unit PO DAILY 11/03/19 06/28/24 History Mcg = 1000 Iu)] Rosuvastatin [Crestor] 10 mg PO HS 11/03/19 06/28/24 History atenoloL 25 mg PO BID 11/03/19 06/28/24 History lisinopriL [Zestril] 5 mg PO HS 11/03/19 06/28/24 History Aspirin EC [Ecotrin Low Dose] 81 mg PO DAILY 06/23/24 06/28/24 History Famotidine [Pepcid] 20 mg PO HS 06/23/24 06/28/24 History Aspirin 325 mg PO BID #60 tab 06/28/24 Rx HYDROcodone/APAP 7.5-325MG [[place] 1 - 2 tab PO Q6H PRN #32 tab 06/28/24 Rx 7.5-325] Sennosides [Senokot] 2 tab PO DAILY PRN #60 tablet 06/28/24 Rx Allergies Allergy/AdvReac Type Severity Reaction Status Date / Time No Known Allergies Allergy Verified 06/28/24 05:45 Physical Exam Vitals: Vital Signs Temp Pulse Resp BP Pulse Ox 06/28/24 11:30 61 18 108/57 98 06/28/24 11:00 68 18 106/62 97 06/28/24 10:30 66 18 126/51 97 06/28/24 10:00 65 18 123/63 97 06/28/24 09:30 69 18 114/59 96 06/28/24 09:11 61 18 115/61 96 06/28/24 08:56 74 16 122/61 92 L 06/28/24 08:41 98.0 F 72 16 131/60 94 L 06/28/24 07:01 59 L 18 135/65 96 06/28/24 06:03 97.0 F L 55 L 18 136/67 96 Intake and Output 06/27/24 06/28/24 06/28/24 22:59 06:59 14:59 Intake Total 100 551 Output Total 30 Balance 100 521 Intake: IV 100 551 Output: Estimated Blood Loss 30 Other: Weight 110.8 kg 110.8 kg Results CBC & Chem 7: 06/28/24 06:40 Labs: Abnormal Lab Results - Last 24 Hours (Table) 06/28/24 Range/Units 06:40 Plt Count 124 L (140-440) 10*3/uL
[2024-06-28] MEDS: ceFAZolin 2 GM in DEXTROSE 5% IN WATER 50 ML IVPB SCH (15:37)
[2024-06-28] MEDS: HYDROcodone/APAP 7.5-325MG 1 EACH TAB PO PRN (17:18)
[2024-06-28] MEDS: lisinopriL 5 MG TAB PO SCH (20:17)
[2024-06-28] MEDS: FAMOTIDINE 20 MG TAB PO SCH (20:17)
[2024-06-28] MEDS: ASPIRIN 325 MG TAB PO SCH (20:17)
[2024-06-28] MEDS: SENNOSIDES-DOCUSATE SODIUM 1 EACH TAB PO SCH (20:17)
[2024-06-28] MEDS: atenoloL 25 MG TAB PO SCH (20:17)
[2024-06-28] MEDS: ATORVASTATIN 20 MG TAB PO SCH (20:17)
--- NOTE | 2024-06-29 07:58 | P.PN ---
Progress Note - Text Progress Note Date: 06/29/24 Postoperative day # 1 status post total knee arthroplasty, on adductor canal perineural catheter placed for postoperative analgesia. Ropivacaine 0.2% 8 mL per hour through ON-Q pump continuous infusion. Pain is well controlled. On visual analog scale 2/10 Patient is taking PRN oral pain medications. Catheter site: Looks Ok. There is no erythema or tenderness. Continue with the current pain management plan and will follow.
[2024-06-29] MEDS: HYDROcodone/APAP 7.5-325MG 1 EACH TAB PO PRN (08:08)
[2024-06-29] MEDS: CHOLECALCIFEROL 125 MCG (5000 IU) TABLET PO SCH (08:08)
[2024-06-29 08:30] LABS: Basophils # (A) 0.01 X 10*3/uL (0.00-0.10); Basophils % (A) 0.1 %; Eosinophils # (A) 0 X 10*3/uL (0.04-0.35); Eosinophils % (A) 0 %; HCT 38.8 % (37.2-46.3); HGB 12.1 g/dL (12.0-15.0); Lymphocytes # (A) 0.77 X 10*3/uL (0.90-5.00); MCH 29.2 pg (27.0-32.0); MCHC 31.2 g/dL (32.0-37.0); MCV 93.5 FL (80.0-97.0); Mean Platelet Volume 12.1 FL (9.5-12.2); Monocytes # (A) 1.19 X 10*3/uL (0.20-1.00); Monocytes % (A) 9.2 %; NRBC Per 100 WBC 0 X 10*3/uL (0.00-0.01); Neutrophils # (A) 10.85 X 10*3/uL (1.80-7.70); Neutrophils % (A) 84.3 %; Platelet Count 124 X 10*3/uL (140-440); RBC 4.15 X 10*6/uL (4.10-5.20); RDW 14.1 % (11.5-14.5); WBC 12.87 X 10*3/uL (4.50-10.00)
[2024-06-29 08:46] VITALS: BP 139/73; PULSE 71; TEMP 97.6
--- NOTE | 2024-06-29 10:21 | P.DS ---
Providers Expected date of discharge: 06/29/24 Attending physician: Guillermo Yuen Consults: 06/28/24 08:47 Consult Physician Routine Consulting Provider: [facility] Consult Reason/Comments: medical management Do you want consulting provider notified?: Yes Primary care physician: Kashif Bishop MD - Discharge Diagnosis(es) (1) Osteoarthritis of left knee Current Visit: Yes Status: Acute (2) Status post total left knee replacement Current Visit: Yes Status: Acute Hospital Course: This is a 79-year-old female with known history of degenerative arthritis of the left knee. The patient presented for evaluation as an outpatient. After discussion and consideration patient elects to proceed with total knee arthroplasty. The patient is seen preoperatively by Dr. Yuen and medically cleared for surgery by their primary care physician. Patient is admitted to [facility] on 06/28/2024 for total knee arthroplasty. The procedure is performed without complication or sequelae. The patient is doing well postoperatively. Labs and vital signs are stable on day of discharge. On day of discharge patient's knee incision is healing well. There is minimal erythema. There is no drainage noted at this time. There is minimal soft tissue swelling to the knee. Patient has full foot and ankle motion without difficulty or pain. Calf is soft and nontender to palpation. Neurovascular status to the left lower extremity is intact. Patient is discharged home in good condition. Please see med rec for accurate list of home medications. Plan - Discharge Summary Discharge Rx Participant: Yes New Discharge Prescriptions: New Aspirin 325 mg PO BID #60 tab HYDROcodone/APAP 7.5-325MG [[place] 7.5-325] 1 - 2 tab PO Q6H PRN #32 tab PRN Reason: Pain Sennosides [Senokot] 2 tab PO DAILY PRN #60 tablet PRN Reason: Constipation No Action Cholecalciferol [Vitamin D3 (25 Mcg = 1000 Iu)] 4,000 unit PO DAILY atenoloL 25 mg PO BID Rosuvastatin [Crestor] 10 mg PO HS lisinopriL [Zestril] 5 mg PO HS Aspirin EC [Ecotrin Low Dose] 81 mg PO DAILY Famotidine [Pepcid] 20 mg PO HS Discharge Medication List Cholecalciferol [Vitamin D3 (25 Mcg = 1000 Iu)] 4,000 unit PO DAILY 11/03/19 [History] Rosuvastatin [Crestor] 10 mg PO HS 11/03/19 [History] atenoloL 25 mg PO BID 11/03/19 [History] lisinopriL [Zestril] 5 mg PO HS 11/03/19 [History] Aspirin EC [Ecotrin Low Dose] 81 mg PO DAILY 06/23/24 [History] Famotidine [Pepcid] 20 mg PO HS 06/23/24 [History] Aspirin 325 mg PO BID #60 tab 06/28/24 [Rx] HYDROcodone/APAP 7.5-325MG [[place] 7.5-325] 1 - 2 tab PO Q6H PRN #32 tab 06/28/24 [Rx] Sennosides [Senokot] 2 tab PO DAILY PRN #60 tablet 06/28/24 [Rx] Follow up Appointment(s)/Referral(s): [facility] [[facility]] - 1-2 Days ([facility] will call you to schedule your in home physical therapy visits. ) Guillermo Yuen DO [Doctor of Osteopathic Medicine] - 2 Weeks Activity/Diet/Wound Care/Special Instructions: Weightbearing as tolerated with a walker. Leave dressing intact. Dressing may be removed by home care nurse or by patient in 7 days. Then change dressing twice daily until follow up. May shower with initial dressing intact and after removal. If dressing become saturated, please remove. Recommend use of compression stockings daily until follow up to help prevent swelling and blood clots. May remove at night before sleeping. Please take aspirin 325mg twice daily for 30 days to prevent blood clots. Please follow up with [facility] and call with any questions or concerns, . Discharge Disposition: HOME WITH HOME HEALTH SERVICES
[2024-06-29 10:27] VITALS: RESP 18
--- NOTE | 2024-06-29 12:16 | P.PN ---
Subjective Progress Note Date: 06/29/24 Patient is a 79-year-old female with past medical history of HTN, HLD, GERD, s/p right knee total arthroplasty, severe left knee osteoarthritis, who presented for elective left total knee arthroplasty that was performed on 06/28/2024, EBL 30 cc, no immediate postop Complications reported. [facility] consulted for medical management. Review of patient's vitals, heart rate in 60s, normote nsive but's couple soft blood pressure readings at 106/62, satting 97% on 2 L. Preoperative lab work showed normal hemoglobin white blood cell count and decreased platelet at 126, this morning platelet 124, previously normal creatinine and GFR with CKD stage II 06/29: Patient was seen and examined, was sitting in the recliner, pain is tolerable, she was able to ambulate with PT this morning, felt good. Vital stable. Blood work showed stable thrombocytopenia 124 and mild leukocytosis 12.87, likely reactive. Cleared for discharge from IM standpoint Pertinent positives and negatives as discussed in HPI, a complete review of systems was performed and all other systems are negative. Patient seen and examined at bedside. Vital signs reviewed General: nontoxic, no distress, appears at stated age Derm: warm, dry Head: atraumatic, normocephalic, symmetric Eyes: EOMI, no lid lag, anicteric sclera, pupils equal round reactive to light ENT: Nose and ears atraumatic Neck: No thyromegaly, supple Mouth: no lip lesion, mucus membranes moist Cardiovascular: S1S2 reg, no murmur, no edema Lungs: clear to auscultation bilateral, no rhonchi, no rales, no wheeze, no accessory muscle use Abdominal: soft, nontender to palpation, no guarding, no appreciable organomegaly Ext: no gross muscle atrophy, muscle strength muscle strength 5 out of 5 in all 4 extremities, no contractures, postop dressing clean and dry Neuro: CN II-XII grossly intact Psych: Alert, oriented, appropriate affect Assessment/Plan: Hypertension: Continue home atenolol 25 mg, lisinopril 10 mg daily with holding parameters Patient is cleared for discharge from IM standpoint Hyperlipidemia: Continue statins, at home on 10 mg of rosuvastatin, will continue with atorvastatin as inpatient Leukocytosis, reactive: Afebrile, expected after intervention Thrombocytopenia, stable, follow-up with PCP Left knee arthritis arthritis status post left knee total arthroplasty 06/28/2024 - Your postop management, pain management, VTE prophylaxis - PT OT We appreciate this opportunity to be involved in this patient's care. We will follow the patient with you. For any further questions, please not hesitate to contact the [facility] team. Objective - Vital Signs Vital signs: Vital Signs Temp 97.6 F 06/29/24 08:00 Pulse 71 06/29/24 08:00 Resp 18 06/29/24 10:25 BP 139/73 06/29/24 08:00 Pulse Ox 100 06/29/24 08:00 FiO2 Intake & Output 06/28/24 06/29/24 06/29/24 18:59 06:59 18:59 Intake Total 551 50 200 Output Total 30 Balance 521 50 200 Weight 110.8 kg Intake: IV 551 Oral 50 200 Output: Estimated Blood Loss 30 Other: Voiding Method Toilet Toilet # Voids 4 4 - Labs CBC & Chem 7: 06/29/24 03:30 Labs: Abnormal Lab Results - Last 24 Hours (Table) 06/29/24 Range/Units 03:30 WBC 12.87 H (4.50-10.00) X 10*3/uL MCHC 31.2 L (32.0-37.0) g/dL Plt Count 124 L (140-440) X 10*3/uL Immature Gran # 0.05 H (0.00-0.04) X 10*3/uL Neutrophils # 10.85 H (1.80-7.70) X 10*3/uL Lymphocytes # 0.77 L (0.90-5.00) X 10*3/uL Monocytes # 1.19 H (0.20-1.00) X 10*3/uL Eosinophils # 0 L (0.04-0.35) X 10*3/uL
== END 2024-06-29 11:56 | disposition home health service (06) ==
LOC: OR 05:34 → 4SSUR 08:37 → OR 06-29 11:56
PROVIDERS: ATTEND Orthopaedic Surgery
DX: M17.12 Unilateral primary osteoarthritis, left knee (principal); K21.9 Gastro-esophageal reflux disease without esophagitis; I12.9 Hypertensive chronic kidney disease with stage 1 through stage 4 chronic kidney disease, or unspecified chronic kidney disease; E78.5 Hyperlipidemia, unspecified; Z90.49 Acquired absence of other specified parts of digestive tract; Z96.653 Presence of artificial knee joint, bilateral; Z87.891 Personal history of nicotine dependence; Z82.49 Family history of ischemic heart disease and other diseases of the circulatory system; Z79.82 Long term (current) use of aspirin; Z79.899 Other long term (current) drug therapy
CPT/HCPCS: 97161; 64448; 64474; 85025; 85049; 73560; 27447; C1713; C1776; C1751; J2250; J1100; J0690 ×2; J2405; J2795